=== PATIENT | male | born 1980 | race Caucasian/White ===

== ENCOUNTER → 2023-11-06 | Outpatient (CLI) | payer OTHER, SELFPAY ==
[2023-11-11 09:07] LABS: Testosterone, % Free 3.59 % (1.50-4.20); Testosterone, Free 6.93 ng/dL (5.00-21.00); Testosterone, Total 193 ng/dL (264-916)
== END | disposition home or self-care (01) ==
LOC: MTLAB 15:19
PROVIDERS: PCP Urology; Referring Provider Urology; Visit Provider Urology
DX: R35.1 Nocturia (principal); R53.83 Other fatigue
CPT/HCPCS: 36415; 84153; 84402; 84403